=== PATIENT | male | born 1985 | race Caucasian/White ===

== ENCOUNTER 2021-10-26 09:56 | Emergency (ER) | payer OTHER, SELFPAY ==
--- NOTE | ~2021-10-26 | XR_ITS ---
EXAMINATION: XR knee LT min 4V DATE: 10/26/2021 10:23 INDICATION: Left knee pain, initial encounter TECHNIQUE: Four views of the left knee were obtained. COMPARISON: None. FINDINGS: Bone alignment is normal. There is an oblique lucency in the superomedial aspect of the pat brad. There is adjacent soft tissue swelling. Joint spaces are normal with no erosions. A small join t effusion is present. IMPRESSION: 1. Acute fracture in the superomedial aspect of the patella with small joint effusion. Reviewed, dictated and finalized at location A. IMPRESSION: 1. Acute fracture in the superomedial aspect of the patella with small joint ef fusion.
[2021-10-26 10:02] VITALS: BP 203/101; PULSE 91; RESP 19; TEMP 36.7; O2SAT 99
[2021-10-26] MEDS: ONDANSETRON INJ 4 MG/2 ML VIAL IV PUSH (10:12)
[2021-10-26] MEDS: HYDROmorphone HCL INJ (*CRX) 1 MG/ML SYR IV PUSH (10:12)
--- NOTE | 2021-10-26 10:44 | ED.GENADULT ---
HPI - General Adult General Chief complaint: Extremity Injury, Lower Stated complaint: GLF c LEFT knee deformity Time Seen by Provider: 10/26/21 09:56 History of Present Illness HPI narrative: 36-year-old male presenting to the emergency department for evaluation after having a ground-level fall. Patient is developmentally delayed and father states he is developmentally about 5 years old. Father states that the patient was outside and was complaining of left knee pain. Patient states he did have a fall but is unable to give any other details about the fall other than that he did not strike his head, did not have loss of consciousness and has no other pain or injury other than his left knee. Related Data Home Medications Medication Instructions Recorded Confirmed No Home Medications 10/26/21 10/26/21 Allergies Allergy/AdvReac Type Severity Reaction Status Date / Time No Known Allergies Allergy Verified 10/26/21 10:08 Review of Systems Review of Systems: Patient reports knee pain but denies any other complaints ROS unobtainable: Yes unobtainable due to mental status Exam Narrative: APPEARANCE: Well appearing, no pain, no distress, well-nourished. HEAD: normocephalic, atraumatic. NECK: Supple. No adenopathy, no masses. RESPIRATORY: Airway patent, respirations nonlabored. Clear to auscultation bilaterally, no rales, rhonchi, wheezing. CARDIOVASCULAR: Regular rate and rhythm without murmurs rubs or gallops. ABDOMINAL: Soft, nontender, nondistended, normal bowel sounds MUSCULOSKELETAL: Upon arrival the left knee was flexed with a left lateral displacement of the patella. Neurovascular intact NEURO: Alert. Cranial nerves II through XII intact. Grossly intact SKIN: Warm, dry. Normal Color Course Course Emergency Course: Patient is resting comfortably after reduction of the left patella. Father was updated on the results of the x-rays and the presence of the fracture. He is unsure of how the patient will tolerate crutches but is willing to attempt. He was comfortable with the plan for discharge and close follow-up. All questions concerns were. Consultations Consultation #1: Case was discussed with Dr. Mercer. He was comfortable to plan for a knee immobilizer crutches and to follow-up in the clinic. Vital Signs Vital signs: Vital Signs Temperature 98.1 F 10/26/21 10:02 Pulse Rate 91 10/26/21 10:02 Respiratory Rate 19 10/26/21 10:02 Blood Pressure 203/101 H 10/26/21 10:02 Pulse Oximetry 99 10/26/21 10:02 Oxygen Delivery Room Air 10/26/21 10:02 Temperature 98.1 F 10/26/21 10:02 Pulse Rate 91 10/26/21 10:49 Respiratory Rate 18 10/26/21 10:49 Blood Pressure 176/94 H 10/26/21 10:49 Pulse Oximetry 98 10/26/21 10:49 Oxygen Delivery Room Air 10/26/21 10:02 Procedures Orthopedic Joint Reduction Joint #1: Orthopedic Joint Reduction Date: 10/26/21 Orthopedic Joint Reduction Time: 19:39 Time Out Performed: Yes Side: left Joint Reduction Location: knee/patella Analgesia: other (Dilaudid) Pre-Procedure Neuro Vascular Exam: normal Technique used: other (Extension of the leg with medial pressure applied to the patella.) Post-reduction neuro exam: intact and no change Post-reduction vascular: intact and no change Post Reduction X-Ray Obtained: Yes Splint Applied: Yes Patient Tolerated Procedure: well and no complications Medical Decision Making Vital Signs Vital Signs: Vital Signs Temperature 98.1 F 10/26/21 10:02 Pulse Rate 91 10/26/21 10:02 Respiratory Rate 19 10/26/21 10:02 Blood Pressure 203/101 H 10/26/21 10:02 Pulse Oximetry 99 10/26/21 10:02 Oxygen Delivery Room Air 10/26/21 10:02 Temperature 98.1 F 10/26/21 10:02 Pulse Rate 91 10/26/21 10:49 Respiratory Rate 18 10/26/21 10:49 Blood Pressure 176/94 H 10/26/21 10:49 Pulse Oximetry 98 10/26/21 10:
[2021-10-26 10:49] VITALS: BP 176/94; PULSE 91; RESP 18; O2SAT 98
== END 2021-10-26 11:54 | disposition home or self-care (01) ==
PROVIDERS: Emergency Provider Emergency Medicine
DX: S82.092A Other fracture of left patella, initial encounter for closed fracture (principal); F79 Unspecified intellectual disabilities; W19.XXXA Unspecified fall, initial encounter
CPT/HCPCS: 27560; 73564; 96374; 96375; 99285; J1170; J2405